=== PATIENT | male | born 1985 | race Caucasian/White ===

== ENCOUNTER → 2016-06-14 | Outpatient (CLI) | payer SELFPAY ==
[2016-06-14 09:31] LABS: SPERM MORPHOLOGY SENT TO REFERENC LAB
[2016-06-14 10:22] LABS: ROUND CELL CONC. 0.7 X10^6/mL (<5.1); SA NONMOTILE CONCENTRATION 12.8 X10^6/mL; SA NONMOTILE COUNT1 126; SA NONMOTILE COUNT2 129; SA ROUND CELL COUNT1 7; SA ROUND CELL COUNT2 7
[2016-06-14 10:23] LABS: SA DILUTION CNT 1 228; SA DILUTION CNT 2 259; SA DILUTION FACTOR 2; SA SPERM MOTILE CONC 35.9 X10^6mL; SPERM PROGRESSION 4; TOTAL SPERM COUNT 146.1 X10^6 (>33.0)
== END ==
LOC: LAB 09:05
PROVIDERS: ATTEND Specialist
DX: N46.9 Male infertility, unspecified (principal)
CPT/HCPCS: 89320